=== PATIENT | female | born 1960 | race Caucasian/White ===

== ENCOUNTER 2017-04-08 18:47 | Inpatient (IN) | payer OTHER ==
[~2017-04-08] VITALS: Ht 154.9 cm; Wt 129.0 kg
--- NOTE | ~2017-04-08 | H ---
[facility] [place] [address] HISTORY AND PHYSICAL Name: HEATH LACEY Room #: 403-P ADM IN M.R.#: [id number] Admission: 04/08/17 Attend Phys: Ankita Canales MD Discharge: Date of : 56 Report #: [id number] THIS REPORT FOR: //name// CC: Christopher Vargas MD [facility] Clayton Canales MD DATE OF SERVICE: 04/08/2017 CHIEF COMPLAINT: Hyperkalemia. HISTORY OF PRESENT ILLNESS: The patient is a 57-year-old white female who currently resides at the [facility]. I received several phone calls about her today, most particularly involving elevated serum potassium level. It was the day prior to admission at 6.3 and with a dose of Kayexalate, the value had come down to 6.1 on the followup study. Also particularly noteworthy was the rise in creatinine, which had increased from normal in the last several months close to 1, now up to 3.0. The patient's lisinopril had also been stopped as well as the furosemide. I initially ordered torsemide, but this was not available. The only other reasonable option in the face of worsening renal insufficiency was intravenous hydration. The long-term was unable to place an IV and given the seriousness of her associated medical problems, decided it will be best for her to go to the Emergency Room. I did discuss the case with the nurse practitioner, Hardik and agreed that the patient needs to be admitted for further evaluation and treatment. PAST MEDICAL HISTORY: This patient has a very extensive past medical history most of which I gathered from a visit with the family. These problems include severe hypertension resistant to treatment, morbid obesity, hypothyroidism after thyroidectomy many years ago, multiple and recurrent TIAs as well as history of stroke. She also had an intracranial hemorrhage due to trauma from a fall greater than 2 years ago. She has not had any further or previous hemorrhages. The patient's sister who is her durable power of associate attorney was found to have factor V deficiency, and had the patient tested and she was also found to have this problem. Because a recent chest x-ray suggested the patient had cardiomegaly in addition to worsening peripheral edema, the patient was seen at [facility] by Dr. Clayton Vargas who by family's report that an extensive workup had showed that her heart actually functions quite normally and there was no evidence of cardiomegaly or any other significant evidence of cardiac disease. The patient's family also revealed to me that she has known obstructive sleep apnea for many years. She previously had a CPAP machine, but this was taken to the long-term for her use and has disappeared under mysterious circumstances. In any case, she has not had a followup sleep study in great many years and per family arrangements are being made as an outpatient [address] [address] HISTORY AND PHYSICAL Name: HEATH LACEY Room #: 403-P [facility] IN M.R.#: [id number] Admission: 04/08/17 Attend Phys: Ankita Canales MD Discharge: Date of : 56 Report #: [id number] to pursue this as well. The patient also has suffered with pseudobulbar affect and right-sided weakness with spasticity since her stroke. She has type 2 diabetes mellitus, hyperlipidemia and upon reviewing all this information, it is apparent that she has the metabolic syndrome, syndrome X. She has also had bilateral left blepharoplasty in the past and she has had C-sections in 1980 and 1981. MEDICATIONS: Her medications at [facility] are as follows: Clopidogrel 75 mg by mouth daily, atorvastatin 10 mg by mouth nightly, nystatin cream as needed for yeast infections, lisinopril 40 mg daily, carvedilol 25 mg by mouth twice daily, levothyroxine 88 mcg by mouth daily, hydralazine 100 mg by mouth 3 times a day, Lantus reportedly 100 units nightly, Nuedexta 20/10 one capsule by mouth twice daily for treatment of pseudobulbar affect, 325 mg Tylenol q. 4 hours as needed for pain, torsemide as mentioned in the Emergency Room note, but the patient has actually never received a dose of that medication. She was on furosemide 80 mg daily prior to it being stopped a couple of days ago. ALLERGIES: No known drug allergies. FAMILY HISTORY: Not contributory except for factor V Leiden. 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 Stroke led her to early nursing home and disability. She is a nonsmoker, has never abused drugs or alcohol. She has a large extended family and was one of 8 siblings. Her spouse and children were also present during our visit [facility]. REVIEW OF SYSTEMS: The patient's sister notes that she is becoming more and more swollen with each passing week in the long-term. The patient denies any significant problems of pain at this time. She denies shortness of breath or chest pain. She denies abdominal pain. Her bowel habits are regular. No new issues with incontinence. She does not have a catheter normally. She reports that Nuedexta is helping her pseudobulbar affect nicely. No headaches. No changes in vision or hearing or swallowing. No recent falls. The rest of an extensive 10-point review was otherwise completely negative. PHYSICAL EXAMINATION: VITAL SIGNS: In the Emergency Room: On arrival, the temperature was 37.0 degrees Celsius, pulse 76, blood pressure 110/70, respirations of 20 with an oxygen saturation of 98% on room air. The patient's reported weight is 278 pounds. GENERAL: The patient is an extremely pleasant middle-aged white female, in no distress. HEENT: The extraocular muscles are intact. The oropharynx is slightly dry and pink. No lesions, no exudates. NECK: Supple, without adenopathy or thyromegaly or mass. Jugular venous [facility] [address] [place] [address] HISTORY AND PHYSICAL Name: MARGEHEATH ANGELA Room #: 403-P [facility] IN [facility].#: [id number] Admission: 04/08/17 Attend Phys: Ankita Canales MD Discharge: Date of : 56 Report #: [id number] distention could not be assessed because of obesity. LUNGS: Fairly clear in the upper lung wilson with faint crackles on both bases. No wheezes. CARDIOVASCULAR: Reveals a distant, but regular rhythm. ABDOMEN: Soft. Bowel sounds are present, no visceromegaly or masses noted, but again, the patient is markedly obese. EXTREMITIES: Have no cyanosis or clubbing. There is no Homans' on either side. The patient's lower extremities, in particular are quite large, but the pitting is minimal. There is no tense edema. Distal peripheral pulses are easily palpated in all 4 distal extremities. The patient has some hypersensitivity in her feet neurologically. No myoclonus. No Homans sign. No tenderness. No diabetic foot wounds or pressure sores. NEUROLOGIC: Mental Status: The patient is alert. She is oriented to person and place and somewhat to time. No hallucinations or delusions noted on exam today. She is very appropriate with questions and answers, although appeared to be limited to more concrete questions. Affect was full and very cheerful. LABORATORY DATA: Chemistry in the Emergency Room showed sodium of 139, a potassium of 5.9, chloride of 99, CO2 of 29. The anion gap was 11. The blood urea nitrogen was 86 with a creatinine of 3.0. The estimated GFR was 16. Glucose was 237, nonfasting. Calcium was 8.2 with an albumin of 3.1, a total protein of 7.6. The total bilirubin was 0.3, the AST was 17, the ALT was 26, alkaline phosphatase was 96, bilirubin 0.3, and the liver functions were essentially normal. CBC showed a white blood cell count of 9800 with a hemoglobin of 12.5, hematocrit 37.3. The mean cell volume was 92.6 with an RDW 14.0, all essentially normal and a platelet count of 258,000. The patient had a mechanical differential of 59% segs, 29% lymphs, 9.7% monocytes, 1.2% eosinophils, 1.1% basophils and occasional large platelets were noted. EKG was done in the Emergency Room that showed a sinus rhythm with a rate of 73 per minute, no evidence of ST segment elevation. ASSESSMENT AND PLAN: 1. Acute renal failure with hyperkalemia and elevated BUN and creatinine given the recent onset and associated aggressive attempts at diuresis -- I think the patient is significantly hypovolemic and would benefit from gentle hydration. I have ordered normal saline to continue at 100 mL per hour and we will monitor serial chemistries closely. I think this will help reduce the patient's potassium reasonably, while we avoid CHEVY inhibitors and potassium supplements. I am not sure how long the patient has been on hydralazine, but it is associated at times with a lupus-like syndrome, as also is Nuedexta; however, because of her significant stroke risk, I will continue this medication and obtain AVANI profile. I have ordered a renal consult and renal ultrasound with Doppler. 2. Metabolic syndrome with type 2 diabetes mellitus, hypertension, obesity, obstructive sleep apnea -- this patient is clearly at high risk for cardiovascular complications of her insulin-resistant state. The factor V deficiency further complicating matters. We will continue to manage some as [facility] [address] [place] [address] HISTORY AND PHYSICAL Name: HEATH LACEY Room #: 403-P [facility] IN .R.#: [id number] Admission: 04/08/17 Attend Phys: Ankita Canales MD Discharge: Date of : 56 Report #: [id number] aggressively as able and we will assess adequacy of supportive therapies with available ____ such as glycosylated hemoglobin and thyroid functions and overnight oximetry study. 3. Factor V deficiency (Leiden). The patient is currently only on Plavix. She may be a candidate for more aggressive anticoagulation if needed in the future. We will discuss this with her cardiovascular document management consultant. 4. History of stroke and transient ischemic attacks with residual deficits outlined above and pseudobulbar affect. I will ask that the physical and occupational therapist see the patient to evaluate and treat her. In speaking with her sister, it is clear that the patient has lost a great deal of functionality in the last 6 months to 1 year and she may benefit from aggressive interventions. 5. Hypoalbuminemia with mild malnutrition. Another reason for helping this patient with her therapies is the decreasing amount of muscle mass, which if not addressed, will leave her unable to help care for herself or ambulate. <ELECTRONICALLY SIGNED> By: Kwame Gresham MD 04/09/17 1553 [id number] [id number] Kwame Gresham MD /nt
--- NOTE | ~2017-04-08 | HC ---
[facility] [address] [place] [address] CONSULTATION Name: HEATH LACEY Rob Room #: 403-P [facility] IN M.R.#: [id number] Admission: 04/08/17 Attend Phys: Ankita Canales MD Discharge: 04/13/17 Date of : 56 Report #: [id number] THIS REPORT FOR: //name// CC: Ankita Canales REASON FOR CONSULTATION: Acute kidney injury. REASON FOR PRESENTATION: Abnormal labs. HISTORY OF PRESENT ILLNESS: This is a 57-year-old who resides in a nursing facility. There had been numerous changes in her medications in the last few days and it is not clear to any of her nursing staff, her family members what had been done in the last few weeks. She sees Dr. Vargas. She had some issues with her blood pressure. They are not really sure if she has taking lisinopril or furosemide or not. Recent labs revealed hyperkalemia with a creatinine up to 3. She is known to have hypertension, morbid obesity and hypothyroidism, status post thyroidectomy. She has had an intracranial hemorrhage related to a bleed few years ago. She does not have any known previous kidney problems. PAST MEDICAL HISTORY: 1. Hypertension. 2. Hypothyroidism. 3. Status post thyroidectomy. 4. Intracranial hemorrhage. 5. Factor V deficiency. 6. Some sort of cardiomegaly of unclear etiology. 7. Diabetes mellitus. 8. Hyperlipidemia. 9. Bilateral blepharoplasty. 10. . MEDICATIONS: From the [place] [facility] listed. 1. Plavix. 2. Atorvastatin. 3. Nystatin. 4. Carvedilol. 5. Levothyroxine. 6. Hydralazine. 7. Lisinopril. ALLERGIES: None. FAMILY HISTORY: No known chronic kidney disease; however, factor V Leiden deficiency runs in the family. SOCIAL HISTORY: No drug or alcohol abuse. She is a retired nurse. She resides in a nursing facility. [facility] [address] [place] [address] CONSULTATION Name: HEATH LACEY Room #: [facility]#: [id number] Admission: 04/08/17 Attend Phys: Ankita Canales MD Discharge: 04/13/17 Date of : 56 Report #: [id number] REVIEW OF SYSTEMS: GENERAL: No fever or chills. CARDIOVASCULAR: No chest pain or palpitation. PULMONARY: No cough or hemoptysis. GASTROINTESTINAL: No nausea or vomiting. NEUROLOGY: Status post intracranial hemorrhage with residual disabilities including pseudobulbar affect. PHYSICAL EXAMINATION: GENERAL: Alert, oriented, in no apparent distress. Morbidly obese. VITAL SIGNS: Blood pressure 110/70. Afebrile. HEAD AND NECK: No jugular venous distention. CHEST: No crackles. CARDIOVASCULAR: Regular, with no rub. ABDOMEN: Soft, nontender. LOWER EXTREMITIES: No edema. LABORATORY DATA: Laboratory values reviewed. Creatinine is down to 2.5 from 3. Potassium was 5.9 yesterday and this has gone down to 4.7. Hemoglobin 12.5. Urine studies are still pending. ASSESSMENT, IMPRESSION AND PLAN: 1. Acute kidney injury. 2. Hyperkalemia. 3. Hypertension. 4. From the renal perspective, her renal function is actually improving. Keep off the CHEVY inhibitor for now. Continue with the IV fluids. Blood pressure seems to be acceptable on hydralazine and carvedilol. I am not really sure of what the inciting events were; however, lisinopril seems to be the culprit and we will continue to hold for now. 5. Routine evaluation is being pursued with appropriate laboratory values and images, including an ultrasound of the kidneys. 6. There is mention in the patient's history that she had some sort of resistant hypertension in the past and I see no evidence that her blood pressure is out of control during this hospitalization. We will continue to evaluate and adjust the medication accordingly. <ELECTRONICALLY SIGNED> By: Moo Bauer MD 04/14/17 0953 [id number] Moo Bauer MD /nt
--- NOTE | ~2017-04-08 | HC ---
[facility] [address] [place] [address] CONSULTATION Name: HEATH LACEY Rob Room #: 403-P [facility]..#: [id number] Admission: 04/08/17 Attend Phys: Ankita Canales MD Discharge: 04/13/17 Date of : 56 Report #: [id number] THIS REPORT FOR: //name// CC: Ankita Canales DATE OF SERVICE: 04/11/2017 HISTORY OF PRESENT ILLNESS: The patient is a 57-year-old white female with a prior CVA with right-sided weakness approximately one year ago, who has been essentially at a wheelchair level and has been living at [facility]. She has been able to transfer herself independently and then has got around utilizing her wheelchair. She had problems with hyperkalemia and worsening creatinine and was admitted to [facility] with acute renal failure with hyperkalemia and elevated BUN and creatinine. She does have metabolic syndrome with type 2 diabetes mellitus, hypertension, obesity, obstructive sleep apnea. She also has factor V deficiency (Leiden). Nephrology has been involved. I am seeing her in rehabilitation medicine consultation. PAST MEDICAL HISTORY: Includes the prior CVA with right-sided weakness. She has had problems with pseudobulbar affect and has been treated medically for that. She has a prior history of TIAs, obstructive sleep apnea. She has the factor V as noted above and the past medical history is delineated. MEDICATIONS: Please see the full medication listing. ALLERGIES: No known drug allergies. FAMILY HISTORY: Noncontributory except for factor V Leiden. 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 The stroke led to her early detention and disability. Noted to be and have children and she has a large extended family. REVIEW OF SYSTEMS: Did not offer any current complaints of chest pain, shortness of breath, abdominal discomfort. Pseudobulbar affect was noted to be improved with Nuedexta. PHYSICAL EXAMINATION: GENERAL: A 57-year-old obese, pleasant white female in no obvious distress. NEUROLOGIC: She is alert. She has some dysarthria, but is able to converse reasonably well. VITAL SIGNS: Last recorded temperature is 97.5, pulse 65, respirations 18, blood pressure 137/71. HEENT: Facies appeared to be symmetric. EXTREMITIES: She has functional range of motion of both upper extremities. [facility] [address] [place] [address] CONSULTATION Name: HEATH LACEY Rob Room #: 403-P [facility]#: [id number] Admission: 04/08/17 Attend Phys: Ankita Canales MD Discharge: 04/13/17 Date of : 56 Report #: [id number] Right upper extremity strength is probably a 4-, left upper extremity is more of a 4+. Lower extremities strength is probably a grade 4-. Appears to have some decreased coordination of that right upper and lower extremity compared to the left. I did not assess sensation. Functionally, she is standby assistance with sit to stand. Appears to have good sitting balance. Supine to sit is standby assistance. ASSESSMENT: A 57-year-old white female with the following problem list: 1. Prior cerebrovascular accident with some residual right-sided weakness. 2. Acute renal failure with hyperkalemia, elevated BUN and creatinine. 3. Metabolic syndrome. 4. Factor V deficiency (Leiden). 5. History of stroke with transient ischemic attacks, right-sided deficits and pseudobulbar affect. 6. Obstructive sleep apnea. 7. Hypoalbuminemia. 8. Exogenous obesity. PLAN: She is working in therapies with standby assistance supine to sit and standby assistance sit to stand. Occupational therapy is to evaluate. She was premorbidly at a wheelchair level and could transfer herself. She appears to be approaching her prior baseline functional level. I would anticipate she should be able to return back to [facility] as she further medically stabilizes. We will have the therapist continue to work with her in the meantime. Thank you for asking us to assist in this patient's care. <ELECTRONICALLY SIGNED> By: Christopher Garcia MD 05/26/17 1408 1107 1500 Christopher Garcia MD /nt
--- NOTE | ~2017-04-08 | EKG ---
[address] [address] ELECTROCARDIOGRAM REPORT Name: HEATH LACEY Room #: 403-P [facility] IN .R.#: [id number] Admission: 04/08/17 Attend Phys: Ankita Canales MD Discharge: Date of : 56 Report #: [id number] THIS REPORT FOR: //name// [facility] ED Test Date: 2017-04-08 Test Time: 19:17:38 Pat Name: HEATH LACEY Department: Room: 403 Gender: F Lead Front End Developer: DIANNE : 1960 Requested By: Valerie Chase Order Number: [id number] MD: Brien Cervantes Measurements Intervals [place] Rate: 73 P: 50 SC: 177 QRS: -6 QRSD: 100 T: 57 QT: 419 QTc: 462 Interpretive Statements Sinus rhythm No significant abnormality No previous ECG available for comparison Electronically Signed On 04-09-2017 14:30:20 [employer]DEL [employer] by Brien Cervantes [email or web address] <ELECTRONICALLY SIGNED> By: Brien Cervantes MD, [facility] 04/09/17 1430 1917 16 Brien Cervantes MD, FACC /EPI
[2017-04-08 18:50] VITALS: BP 110/70
[2017-04-08 19:37] LABS: ABSOLUTE NEUTROPHILS 5.8 thou/uL (1.4-8.2); BASOPHILS 1.1 % (0.0-2.0); EOSINOPHILS 1.2 % (0.0-3.0); HEMATOCRIT 37.3 % (37.0-47.0); HEMOGLOBIN 12.5 gm/dL (12.0-15.0); MCH 31.1 pg (26.0-34.0); MCHC 33.6 g/dL (28.0-37.0); MCV 92.6 fL (80.0-100.0); MONOCYTES 9.7 % (1.0-8.0); PLATELET COUNT 258 thou/uL (150-400); RBC 4.03 mil/uL (4.20-5.00); WBC 9.8 thou/uL (4.0-11.0)
[2017-04-08 19:47] LABS: CALCIUM 8.2 mg/dL (8.5-10.1); POTASSIUM 5.9 mmol/L (3.5-5.1)
[2017-04-08 19:50] LABS: ALBUMIN 3.1 g/dL (3.4-5.0); TOTAL BILIRUBIN 0.3 mg/dL (<0.1-1.0); TOTAL PROTEIN 7.6 g/dL (6.4-8.2)
[2017-04-08 20:28] LABS: LARGE PLATELETS OCCASIONAL
[2017-04-08 20:49] VITALS: BP 123/75
[2017-04-08] MEDS ORDERED: PLAVIX 75 MG TA75 M1 PO (20:50)
[2017-04-08] MEDS ORDERED: LIPITOR10 MG PO (20:50)
[2017-04-08] MEDS ORDERED: LISINOPRIL20 MG PO (20:50)
[2017-04-08] MEDS ORDERED: NYAMYC15 GM TOP (20:50)
[2017-04-08] MEDS ORDERED: HYDRALAZINE 2525 MG PO (20:51)
[2017-04-08] MEDS ORDERED: COREG25 MG PO (20:51)
[2017-04-08] MEDS ORDERED: SYNTHROID88 MCG PO (20:51)
[2017-04-08] MEDS ORDERED: TYLENOL325 MG PO (20:52)
[2017-04-08] MEDS ORDERED: LANTUS100 UNIT/M SUBQ (20:52)
[2017-04-08] MEDS ORDERED: NUEDEXTA 20-101 EACH PO (20:52)
[2017-04-08] MEDS ORDERED: DEMADEX20 MG PO (20:53)
[2017-04-08 21:13] VITALS: BP 111/67
[2017-04-08 22:20] VITALS: BP 115/78
[2017-04-09 04:00] VITALS: BP 125/63
[2017-04-09 06:40] LABS: CALCIUM 7.6 mg/dL (8.5-10.1); CREATININE 2.5 mg/dL (0.6-1.0)
[2017-04-09 06:42] LABS: POTASSIUM 4.7 mmol/L (3.5-5.1)
[2017-04-09 07:35] VITALS: BP 113/70
[2017-04-09 16:05] VITALS: BP 107/74
[2017-04-09 19:35] VITALS: BP 112/68
[2017-04-10 02:05] LABS: GLYCOHEMOGLOBIN (HGB A1C) 7.9 % (4.8-5.6)
[2017-04-10 03:33] VITALS: BP 131/80
[2017-04-10 08:00] VITALS: BP 146/87
[2017-04-10 11:45] LABS: CALCIUM 8.3 mg/dL (8.5-10.1); CREATININE 1.7 mg/dL (0.6-1.0)
[2017-04-10 11:48] LABS: POTASSIUM 6.3 mmol/L (3.5-5.1)
[2017-04-10 15:39] LABS: URINE BILIRUBIN NEGATIVE (Negative); URINE BLOOD 1+ (Negative); URINE CLARITY CLEAR; URINE COLOR YELLOW; URINE GLUCOSE-RANDOM* NEGATIVE (Negative); URINE KETONES NEGATIVE (Negative); URINE LEUKOCYTES 3+ (Negative); URINE NITRITE NEGATIVE (Negative); URINE PROTEIN (DIPSTICK) TRACE (Negative); URINE SPECIFIC GRAVITY 1.015 (1.005-1.035); URINE UROBILINOGEN 0.2 E.U./dl (0.2-1.0)
[2017-04-10 15:54] LABS: CASTS None Seen /LPF (None Seen); SQUAMOUS 0-3 Few /LPF (0-3); URINE RBC 3-10 Few /HPF (0-2); URINE WBC >25 Many /HPF (0-5)
[2017-04-10 15:55] LABS: BACTERIA >30 Many /HPF (None Seen); CRYSTALS None Seen /LPF (None Seen)
[2017-04-10 17:36] VITALS: BP 129/82
[2017-04-10 20:17] VITALS: BP 135/86
[2017-04-11 04:09] VITALS: BP 127/85
[2017-04-11 07:23] LABS: ALBUMIN 2.9 g/dL (3.4-5.0); CALCIUM 8.5 mg/dL (8.5-10.1); CREATININE 1.6 mg/dL (0.6-1.0); PHOSPHORUS 3.3 mg/dL (2.5-4.9)
[2017-04-11 07:25] LABS: POTASSIUM 5.2 mmol/L (3.5-5.1)
[2017-04-11 07:29] VITALS: BP 137/71
[2017-04-11 11:09] LABS: ANTI-DNA SCREEN 1 IU/mL (0-9); ANTI-RNP <0.2 AI (0.0-0.9)
[2017-04-11 15:08] VITALS: BP 144/89
[2017-04-11 17:20] VITALS: BP 142/82
[2017-04-11 20:00] VITALS: BP 129/87
[2017-04-12] VITALS (7 sets, daily range): BP systolic 110–155; BP diastolic 74–98
[2017-04-12 05:35] LABS: ALBUMIN 2.8 g/dL (3.4-5.0); CALCIUM 8.3 mg/dL (8.5-10.1); CREATININE 1.3 mg/dL (0.6-1.0); PHOSPHORUS 3.5 mg/dL (2.5-4.9); POTASSIUM 5.3 mmol/L (3.5-5.1)
[2017-04-13 04:00] VITALS: BP 120/84
[2017-04-13 06:28] LABS: ALBUMIN 2.7 g/dL (3.4-5.0); CREATININE 1.3 mg/dL (0.6-1.0); PHOSPHORUS 3.3 mg/dL (2.5-4.9); POTASSIUM 4.6 mmol/L (3.5-5.1)
[2017-04-13 08:03] VITALS: BP 134/85
[2017-04-13 17:52] VITALS: BP 145/89
== END 2017-04-13 19:01 | DRG 683 ==
LOC: ER 18:47 → EROBS 20:18 → 4N 20:18 → ENTRNSPT 04-13 18:06 → 4N 04-13 19:01
PROVIDERS: Hospitalist; Internal Medicine; Nurse Practitioner Family
DX: N17.9 Acute kidney failure, unspecified (principal); E44.1 Mild protein-calorie malnutrition; D68.2 Hereditary deficiency of other clotting factors; I69.951 Hemiplegia and hemiparesis following unspecified cerebrovascular disease affecting right dominant side; Z68.43 Body mass index [BMI] 50.0-59.9, adult; I12.0 Hypertensive chronic kidney disease with stage 5 chronic kidney disease or end stage renal disease; E87.6 Hypokalemia; N18.9 Chronic kidney disease, unspecified; E11.22 Type 2 diabetes mellitus with diabetic chronic kidney disease; E87.5 Hyperkalemia; E86.0 Dehydration; E78.5 Hyperlipidemia, unspecified; E88.81 Metabolic syndrome and other insulin resistance; G47.33 Obstructive sleep apnea (adult) (pediatric); E88.09 Other disorders of plasma-protein metabolism, not elsewhere classified; I25.10 Atherosclerotic heart disease of native coronary artery without angina pectoris; L30.4 Erythema intertrigo; E66.01 Morbid (severe) obesity due to excess calories; E03.9 Hypothyroidism, unspecified
CPT/HCPCS: 10790

== ENCOUNTER 2017-04-16 19:22 | Inpatient (IN) | payer OTHER ==
[~2017-04-16] VITALS: Ht 154.9 cm; Wt 129.7 kg
[~2017-04-16 19:22] MED LIST: COREG25 MG PO; DEMADEX20 MG PO; HYDRALAZINE 2525 MG PO; LANTUS100 UNIT/M SUBQ; LIPITOR10 MG PO; LISINOPRIL20 MG PO; NUEDEXTA 20-101 EACH PO; NYAMYC15 GM TOP; PLAVIX 75 MG TA75 M1 PO; SYNTHROID88 MCG PO; TYLENOL325 MG PO
[2017-04-16 19:35] VITALS: BP 160/80
[2017-04-16 23:02] LABS: ABSOLUTE NEUTROPHILS 5.5 thou/uL (1.4-8.2); BASOPHILS 0.9 % (0.0-2.0); EOSINOPHILS 1.8 % (0.0-3.0); HEMATOCRIT 35.2 % (37.0-47.0); HEMOGLOBIN 11.6 gm/dL (12.0-15.0); LYMPHOCYTES 27.6 % (24.0-44.0); MCH 30.6 pg (26.0-34.0); MCHC 32.9 g/dL (28.0-37.0); MCV 92.9 fL (80.0-100.0); PLATELET COUNT 231 thou/uL (150-400); POLYS 59.7 % (36.0-66.0); RBC 3.79 mil/uL (4.20-5.00); RDW 13.3 % (10.5-14.5); WBC 9.2 thou/uL (4.0-11.0)
[2017-04-16 23:11] LABS: ANION GAP 6 mmol/L (7-16); BUN 25 mg/dL (7-18); CALCIUM 8.5 mg/dL (8.5-10.1); CHLORIDE 107 mmol/L (98-107); CO2 27 mmol/L (21-32); CREATININE 1.3 mg/dL (0.6-1.0); GLUCOSE 145 mg/dL (74-106); POTASSIUM 4.3 mmol/L (3.5-5.1); SODIUM 140 mmol/L (136-145)
[2017-04-16 23:17] LABS: ALBUMIN 2.8 g/dL (3.4-5.0); DIRECT BILIRUBIN < 0.1 mg/dL (<0.1-0.3); LIPASE 587 U/L (73-393); MAGNESIUM 1.9 mg/dL (1.8-2.4); SGOT 15 U/L (15-37); SGPT 25 U/L (30-65); TOTAL BILIRUBIN 0.2 mg/dL (<0.1-1.0); TOTAL PROTEIN 6.7 g/dL (6.4-8.2)
[2017-04-17 00:09] LABS: URINE BILIRUBIN NEGATIVE (Negative); URINE BLOOD NEGATIVE (Negative); URINE CLARITY CLEAR; URINE COLOR YELLOW; URINE GLUCOSE-RANDOM* NEGATIVE (Negative); URINE KETONES NEGATIVE (Negative); URINE PROTEIN (DIPSTICK) NEGATIVE (Negative); URINE SPECIFIC GRAVITY 1.025 (1.005-1.035); URINE UROBILINOGEN 0.2 E.U./dl (0.2-1.0)
[2017-04-17 00:11] LABS: URINE LEUKOCYTES-REFLEX 2+ (Negative); URINE NITRITE-REFLEX POSITIVE (Negative)
[2017-04-17 00:29] LABS: HYALINE CASTS 4-10 Moderate /LPF (None Seen); MUCUS 0-3 Light strn/LPF (None Seen); SQUAMOUS 0-3 Few /LPF (0-3)
[2017-04-17 00:30] LABS: BACTERIA-REFLEX >30 Many /HPF (None Seen); CRYSTALS None Seen /LPF (None Seen); URINE RBC None Seen /HPF (0-2)
[2017-04-17 00:33] LABS: TRANSITIONAL EPITHEL CELL 4-10 Moderate /LPF (None Seen); WBC CLUMPS Few (None Seen)
[2017-04-17 01:48] VITALS: BP 139/89
[2017-04-17 02:00] VITALS: BP 145/94
[2017-04-17 02:03] VITALS: BP 139/89
[2017-04-17 08:50] VITALS: BP 160/86
[2017-04-17 12:29] LABS: CHOLESTEROL 126 mg/dL (<200); HDL CHOLESTEROL 33 mg/dL (>40); LDL CHOLESTEROL 78 mg/dL (<100); TC:HDL 3.8 Ratio (Not establshd); TRIGLYCERIDE 78 mg/dL (<150); VLDL 16 mg/dL (<40)
[2017-04-17 15:55] VITALS: BP 174/95
[2017-04-17 20:06] VITALS: BP 121/69
[2017-04-18 04:02] VITALS: BP 165/96
[2017-04-18 07:08] LABS: ALBUMIN 2.6 g/dL (3.4-5.0); POTASSIUM 3.8 mmol/L (3.5-5.1); TOTAL BILIRUBIN 0.2 mg/dL (<0.1-1.0); TOTAL PROTEIN 6.4 g/dL (6.4-8.2)
[2017-04-18 08:35] VITALS: BP 163/101
[2017-04-18 16:30] VITALS: BP 138/94
[2017-04-18 20:00] VITALS: BP 153/76
[2017-04-19 08:20] VITALS: BP 155/90
[2017-04-19] MEDS ORDERED: CEFUROXIME250 MG PO (12:00)
[2017-04-19] MEDS ORDERED: FLOMAX0.4 MG PO (12:00)
[2017-04-19] MEDS ORDERED: LASIX 20 MG TAB20 MG PO (12:01)
[2017-04-19 15:05] VITALS: BP 138/94
[2017-04-19 20:00] VITALS: BP 143/88
[2017-04-20 04:00] VITALS: BP 167/92
[2017-04-20 07:55] VITALS: BP 149/80
[2017-04-20 08:06] VITALS: BP 149/80
== END 2017-04-20 09:35 | DRG 439 ==
LOC: ER 19:22 → EROBS 04-17 00:46 → 4E 04-17 00:46 → ENTRNSPT 04-20 09:18 → EDTRNSPTSTS 04-20 09:21 → 4E 04-20 09:35
PROVIDERS: Emergency Medicine; Internal Medicine; Nurse Practitioner
DX: K85.90 Acute pancreatitis without necrosis or infection, unspecified (principal); N39.0 Urinary tract infection, site not specified; E46 Unspecified protein-calorie malnutrition; D68.2 Hereditary deficiency of other clotting factors; Z68.43 Body mass index [BMI] 50.0-59.9, adult; I10 Essential (primary) hypertension; E86.0 Dehydration; R33.9 Retention of urine, unspecified; E66.01 Morbid (severe) obesity due to excess calories; K76.0 Fatty (change of) liver, not elsewhere classified; E11.9 Type 2 diabetes mellitus without complications; B96.20 Unspecified Escherichia coli [E. coli] as the cause of diseases classified elsewhere; Z79.899 Other long term (current) drug therapy; Z87.891 Personal history of nicotine dependence
CPT/HCPCS: 10084